=== PATIENT | male | born 1990 | race Two or more races ===

== ENCOUNTER 2019-08-04 23:39 | Emergency (ER) | payer OTHER ==
[~2019-08-04] VITALS: Ht 185.4 cm; Wt 105.9 kg
[2019-08-05] MEDS ORDERED: FAMOTIDINE 20 MG/2 ML VIAL IVP ONE (00:30)
[2019-08-05] MEDS ORDERED: IV NORMAL SALINE 1,000ML 1,000 ML IV SCH (00:30)
[2019-08-05] MEDS ORDERED: ONDANSETRON PF 4 MG/2 ML VIAL. IVP ONE (00:30)
[2019-08-05 00:41] LABS: BASO % 0 % (0-3); EOS % 0 % (0-3); HEMATOCRIT 43.4 % (39.0-53.0); HEMOGLOBIN 14.2 g/dL (13.0-17.5); LYMPH % 10 % (24-48); MEAN CORPUSCULAR HEMOGLOBIN 31 pg (25-35); MEAN CORPUSCULAR HGB CONC 33 g/dL (31-37); MEAN CORPUSCULAR VOLUME 94 fL (79-100); MONO # 0.5 x10^3/uL (0.0-1.1); MONO % 6 % (0-9); NEUT # 7.7 x10^3uL (1.8-7.7); NEUT % 84 % (31-73); PLATELET COUNT 227 x10^3/uL (140-400); RED BLOOD COUNT 4.63 x10^6/uL (4.30-5.70); RED CELL DISTRIBUTION WIDTH 13.5 % (11.5-14.5); WHITE BLOOD COUNT 9.3 x10^3/uL (4.0-11.0)
[2019-08-05 00:50] LABS: CALCIUM 8.8 mg/dL (8.5-10.1); CREATININE 1.1 mg/dL (0.7-1.3); GFR 78.6
[2019-08-05 00:55] LABS: ALBUMIN/GLOBULIN RATIO 1.4 (1.0-1.7); TOTAL BILIRUBIN 0.4 mg/dL (0.2-1.0); TOTAL PROTEIN 6.8 g/dL (6.4-8.2)
--- NOTE | 2019-08-05 01:52 | RAD ---
Testicular ultrasound History: Right-sided pain/swelling that extends to right groin. Vasectomy 08/04/2019. Comparison: None. Technique: Multiple grayscale, color flow Doppler and Doppler spectral analysis images of the scrotum are obtained. Findings: Superior to the right testicle there is a complex heterogeneous mass that extends to the right groin measuring 10.1 x 6.8 x 3.4 cm. Color Doppler interrogation does not demonstrate internal vascularity. Right testicle measures 4.7 x 2.7 x 2.3 cm. Right testicle demonstrates normal parenchymal echogenicity. The right epididymis is unremarkable. Left testicle measures 4 x 2.5 x 2.4 cm. Left testicle demonstrates normal parenchymal echogenicity. The left epididymis is unremarkable. There is trace bilateral hydroceles. There is no varicocele. Scrotal hyperemia or swelling are not seen. Doppler imaging demonstrates normal flow to both testicles, without evidence of torsion. IMPRESSION: 1. There is a complex heterogeneous mass superior to the right testicle extending to the right groin. Common etiology would be an inguinal hernia. The mass may be bowel although typical bowel mucosa echotexture is not identified. Recommend further evaluation with CT pelvis with contrast. 2. No evidence of testicular mass or torsion. 3. Trace bilateral hydroceles. Electronically signed by: Govind Hidalgo MD (08/05/2019 1:49 AM) [id number]
[2019-08-05] MEDS ORDERED: CONTRAST GIVEN MC PRN (02:15)
[2019-08-05] MEDS ORDERED: IOHEXOL 300 MG/ML 75 ML VIAL. IV ONE (02:30)
[2019-08-05 03:13] LABS: BACTERIA,URINE 0 /HPF (0-FEW); BILIRUBIN,URINE NEG (NEG); CLARITY,URINE CLEAR; COLOR,URINE YELLOW; GLUCOSE,URINE NEG (NEG); NITRITE,URINE NEG (NEG); RBC,URINE 0 /HPF (0-2); SQUAMOUS EPITHELIAL CELL,UR OCC /LPF; UROBILINOGEN,URINE 0.2 mg/dL (0.2 mg/dL); WBC,URINE RARE /HPF (0-4)
--- NOTE | 2019-08-05 03:29 | RAD ---
PQRS Compliance Statement: One or more of the following individualized dose reduction techniques were utilized for this examination: 1. Automated exposure control 2. Adjustment of the mA and/or kV according to patient size 3. Use of iterative reconstruction technique CT PELVIS W/CONTRAST Clinical Indication: Right inguinal mass, testicular pain and swelling post mastectomy. Comparison: Testicular ultrasound, earlier same day. TECHNIQUE: Helical CT imaging of the pelvis is performed after 74 cc of Omnipaque 300 IV contrast. Findings: Contrast phase is delayed which limits evaluation. The appendix is normal. Visualized bowel unremarkable. Urinary bladder is not well distended. Prostate and seminal vesicles are normal. No pelvic free fluid. In the right scrotum surrounding vasectomy clip there is hyperdense hematoma measuring approximately 7.7 cm AP by 6.1 cm transverse by 12.1 cm craniocaudal. There is induration that extends more cephalad an additional 9 cm, for example coronal image 18. The right testicle is inferior to the hematoma. There are a couple of tiny foci of air in the hematoma. Left vasectomy clip is also noted. No acute bone abnormality. Transitional lumbar sacral anatomy. IMPRESSION: There is a large hyperdense hematoma in the right scrotum surrounding the vasectomy clip. Electronically signed by: Govind Hidalgo MD (08/05/2019 3:26 AM) [id number]
--- NOTE | 2019-08-05 03:38 | EKG ---
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
[2019-08-05 03:49] VITALS: BP 117/64
--- NOTE | 2019-08-05 03:55 | PHYS DOC ---
Past History Past Medical History: No Pertinent History Past Surgical History: Other Additional Past Surgical Histo: vasectomy Alcohol Use: None Adult General Chief Complaint Chief Complaint: POST-OP PROBLEM HPI HPI Patient is a 28 year old male who presents with complaint of groin swelling and pain. Patient states that he underwent a vasectomy earlier in the day at the office of Dr. Wolf Brooks, urologist, here at [facility]. Patient does note that during the procedure he experienced significant pain to the right testicle. Per routine, patient went home after the procedure. He initially did not note any significant swelling or bleeding. Patient however started to experience significant lightheadedness, dizziness, and per almost "passed out." He stated that this happened when he had gotten up to use the restroom e arlier this evening. He also noted significant pressure to the groin area. When patient examined the area where his procedure had been done, he states that he has noticed severe swelling and bruising to the affected area. Notes that when he sits up he gets very lightheaded. Patient also noted that he was experiencing ringing in his ears which has since stopped. Denies any previous history of cardiac abnormality or other significant past medical history. Patient and contacted the on-call nurse for Dr. Brooks and he was instructed to come to the emergency department for further evaluation. Review of Systems Review of Systems Constitutional: Denies fever or chills [] Eyes: Denies change in visual acuity, redness, or eye pain [] HENT: Tinnitus, denies nasal congestion or sore throat[] Respiratory: Denies cough or shortness of breath [] Cardiovascular: Near-syncope, denies chest pain or edema[] GI: Nausea, denies vomiting, bloody stools or diarrhea [] : Swelling and bruising to scrotum and groin[] Musculoskeletal: Denies back pain or joint pain [] Integument: Denies rash or skin lesions [] Neurologic: Lightheadedness, denies focal weakness or sensory changes [] All other systems were reviewed and found to be within normal limits, except as documented in this note. Current Medications Current Medications Current Medications Medications (Trade) Dose Ordered Sig/Bill Start Time Stop Time Status Last Admin Dose Admin Famotidine (Pepcid Vial) 20 mg 1X ONCE 08/05/19 00:30 08/05/19 00:31 DC 2/13/20 00:35 20 MG Fentanyl Citrate (Fentanyl 2ml Vial) 50 mcg PRN Q15MIN PRN 08/05/19 00:15 08/06/19 00:14 08/05/19 03:26 50 MCG Info (Do NOT chart on this entry -- for MONITORING) 1 each PRN DAILY PRN 08/05/19 02:15 08/07/19 02:14 Iohexol (Omnipaque 300 Mg/ml) 75 ml 1X ONCE 08/05/19 02:30 08/05/19 02:31 DC 08/05/19 02:27 75 ML Ondansetron HCl (Zofran) 4 mg 1X ONCE 08/05/19 00:30 08/05/19 00:31 DC 08/05/19 00:35 4 MG Sodium Chloride 1,000 ml @ 1,000 mls/hr Q1H 08/05/19 00:30 08/05/19 01:29 DC 08/05/19 00:36 1,000 MLS/HR Allergies Allergies Allergies Coded Allergies Type Severity Reaction Last Updated Verified No Known Drug Allergies 08/05/19 No Physical Exam Physical Exam Constitutional: Alert, afebrile, appears in [id number] discomfort. [] HENT: Normocephalic, atraumatic, bilateral external ears normal, oropharynx moist, no oral exudates, nose normal. [] Eyes: PERRLA, EOMI, conjunctiva normal, no discharge. [] Neck: Normal range of motion, no tenderness, supple, no stridor. [] Cardiovascular:Heart rate regular rhythm, no murmur [] Lungs & Thorax: Bilateral breath sounds clear to auscultation [] Abdomen: Bowel sounds normal, soft, no tenderness, no masses, no pulsatile masses. : Penis uncircumcised, moderate to severe swelling of the right hemiscrotum with overlying ecchymosis, moderate to severe tenderness to palpation, noted moderate soft tissue swelling extending through right inguinal canal, normal left cremasteric reflex, limited right cremasteric reflex exam due to significant soft tissue swelling.[] Skin: Warm, dry, no erythema, no rash. [] Back: No tenderness, no CVA tenderness. [] Extremities: No tenderness, no cyanosis, no clubbing, ROM intact, no edema. [] Neurologic: Alert and oriented X 3, normal motor function, normal sensory function, no focal deficits noted. [] Current Patient Data Vital Signs Vital Signs Date Time Temp Pulse Resp B/P (MAP) Pulse Ox O2 Delivery O2 Flow Rate FiO2 08/05/19 03:26 16 99 Room Air 08/05/19 01:49 77 117/65 (82) 08/04/19 23:42 97.7 Lab Results Laboratory Tests Test 08/05/19 00:25 08/05/19 02:40 White Blood Count 9.3 x10^3/uL (4.0-11.0) Red Blood Count 4.63 x10^6/uL (4.30-5.70) Hemoglobin 14.2 g/dL (13.0-17.5) Hematocrit 43.4 % (39.0-53.0) Mean Corpuscular Volume 94 fL (79-100) Mean Corpuscular Hemoglobin 31 pg (25-35) Mean Corpuscular Hemoglobin Concent 33 g/dL (31-37) Red Cell Distribution Width 13.5 % (11.5-14.5) Platelet Count 227 x10^3/uL (140-400) Neutrophils (%) (Auto) 84 % (31-73) H Lymphocytes (%) (Auto) 10 % (24-48) L Monocytes (%) (Auto) 6 % (0-9) Eosinophils (%) (Auto) 0 % (0-3) Basophils (%) (Auto) 0 % (0-3) Neutrophils # (Auto) 7.7 x10^3uL (1.8-7.7) Lymphocytes # (Auto) 1.0 x10^3/uL (1.0-4.8) Monocytes # (Auto) 0.5 x10^3/uL (0.0-1.1) Eosinophils # (Auto) 0.0 x10^3/uL (0.0-0.7) Basophils # (Auto) 0.0 x10^3/uL (0.0-0.2) Sodium Level 142 mmol/L (136-145) Potassium Level 4.0 mmol/L (3.5-5.1) Chloride Level 104 mmol/L (98-107) Carbon Dioxide Level 30 mmol/L (21-32) Anion Gap 8 (6-14) Blood Urea Nitrogen 19 mg/dL (8-26) Creatinine 1.1 mg/dL (0.7-1.3) Estimated GFR (Cockcroft-Gault) 78.6 BUN/Creatinine Ratio 17 (6-20) Glucose Level 116 mg/dL (70-99) H Calcium Level 8.8 mg/dL (8.5-10.1) Total Bilirubin 0.4 mg/dL (0.2-1.0) Aspartate Amino Transferase (AST) 16 U/L (15-37) Alanine Aminotransferase (ALT) 28 U/L (16-63) Alkaline Phosphatase 55 U/L (46-116) Total Protein 6.8 g/dL (6.4-8.2) Albumin 4.0 g/dL (3.4-5.0) Albumin/Globulin Ratio 1.4 (1.0-1.7) Urine Collection Type Unknown Urine Color Yellow Urine Clarity Clear Urine pH 6.0 Urine Specific [place] 1.020 Urine Protein Neg (NEG-TRACE) Urine Glucose (UA) Neg mg/dL (NEG) Urine Ketones (Stick) Neg mg/dL (NEG) Urine Blood Neg (NEG) Urine Nitrite Neg (NEG) Urine Bilirubin Neg (NEG) Urine Urobilinogen Dipstick 0.2 mg/dL (0.2 mg/dL) Urine Leukocyte Esterase Neg (NEG) Urine RBC 0 /HPF (0-2) Urine WBC Rare /HPF (0-4) Urine Squamous Epithelial Cells Occ /LPF Urine Bacteria 0 /HPF (0-FEW) EKG EKG Interpreted by me: Heart rate 64, sinus rhythm, normal intervals, normal axis, no acute ST/T-wave abnormalities present[] Radiology/Procedures Radiology/[place] [address] IMAGING REPORT Signed PATIENT: ERIK OLIVASACCOUNT: [id number] : 1990 LOCATION: ER AGE: 28 SEX: M EXAM STATUS: REG ER ORD. PHYSICIAN: KAVITHA MARTINES MD REASON: right scrotal bruising and swelling, s/p vasectomy today PROCEDURE: TESTICULAR/SCROTUM Testicular ultrasound History: Right-sided pain/swelling that extends to right groin. Vasectomy 08/04/2019. Comparison: None. Technique: Multiple grayscale, color flow Doppler and Doppler spectral analysis images of the scrotum are obtained. Findings: Superior to the right testicle there is a complex heterogeneous mass that extends to the right groin measuring 10.1 x 6.8 x 3.4 cm. Color Doppler interrogation does not demonstrate internal vascularity. Right testicle measures 4.7 x 2.7 x 2.3 cm. Right testicle demonstrates normal parenchymal echogenicity. The right epididymis is unremarkable. Left testicle measures 4 x 2.5 x 2.4 cm. Left testicle demonstrates normal parenchymal echogenicity. The left epididymis is unremarkable. There is trace bilateral hydroceles. There is no varicocele. Scrotal hyperemia or swelling are not seen. Doppler imaging demonstrates normal flow to both testicles, without evidence of torsion. IMPRESSION: 1. There is a complex heterogeneous mass superior to the right testicle extending to the right groin. Common etiology would be an inguinal hernia. The mass may be bowel although typical bowel mucosa echotexture is not identified. Recommend further evaluation with CT pelvis with contrast. 2. No evidence of testicular mass or torsion. 3. Trace bilateral hydroceles. Electronically signed by: Govind Hidalgo MD (08/05/2019 1:49 AM) [id number] DICTATED AND SIGNED BY: GOVIND HIDALGO MD DATE: 08/05/19 0149 CC: KAVITHA MARTINES MD; KARISHMA ROSSI DO ~ [place] [id number] IMAGING REPORT Signed PATIENT: ERIK OLIVASACCOUNT: [id number] : 1990 LOCATION: ER AGE: 28 SEX: M EXAM STATUS: REG ER ORD. PHYSICIAN: KAVITHA MARTINES MD REASON: right inguinal mass, testicular pain and swelling s/p vasectomy, PROCEDURE: CT PELVIS W/CONTRAST PQRS Compliance Statement: One or more of the following individualized dose reduction techniques were utilized for this examination: 1. Automated exposure control 2. Adjustment of the mA and/or kV according to patient size 3. Use of iterative reconstruction technique CT PELVIS W/CONTRAST Clinical Indication: Right inguinal mass, testicular pain and swelling post mastectomy. Comparison: Testicular ultrasound, earlier same day. TECHNIQUE: Helical CT imaging of the pelvis is performed after 74 cc of Omnipaque 300 IV contrast. Findings: Contrast phase is delayed which limits evaluation. The appendix is normal. Visualized bowel unremarkable. Urinary bladder is not well distended. Prostate and seminal vesicles are normal. No pelvic free fluid. In the right scrotum surrounding vasectomy clip there is hyperdense hematoma measuring approximately 7.7 cm AP by 6.1 cm transverse by 12.1 cm craniocaudal. There is induration that extends more cephalad an additional 9 cm, for example coronal image 18. The right testicle is inferior to the hematoma. There are a couple of tiny foci of air in the hematoma. Left vasectomy clip is also noted. No acute bone abnormality. Transitional lumbar sacral anatomy. IMPRESSION: There is a large hyperdense hematoma in the right scrotum surrounding the vasectomy clip. Electronically signed by: Govind Hidalgo MD (08/05/2019 3:26 AM) [id number] DICTATED AND SIGNED BY: GOVIND HIDALGO MD DATE: 08/05/19 0326 CC: KAVITHA MARTINES MD; KARISHMA ROSSI DO ~ [] Course & Med Decision Making Course & Med Decision Making Pertinent Labs and Imaging studies reviewed. (See chart for details) Patient started on IV fluids, fentanyl, Zofran, and Pepcid in the emergency department. Ultrasound imaging was ordered. Blood flow confirmed to the right testicle. Large heterogenous mass was noted on ultrasound imaging confirmed to be a large right scrotal hematoma after CT imaging was performed. The patient's examination and findings are consistent with postoperative scrotal hematoma likely contributing to vasovagal symptoms given patient's lightheadedness, transient tinnitus, and reported "near passing out." I contacted the patient's urologist, Dr. Wolf Brooks, and spoke with him regarding the patient's evaluation. He stated that he would be in his clinic in [place], [place] this morning and he requested that the patient remain NPO and go to his office this morning when it opens in order to drain the hematoma and improve the patient's symptoms. He stated the patient could continue in the meantime with ice packs and pain medication as prescribed from his procedure yesterday. Spoke with patient regarding recommendations and need for follow-up this morning. Advised return t o the emergency department for any worsening symptoms. Patient voiced understanding of recommended treatment plan.[] Dragon Disclaimer Dragon Disclaimer This electronic medical record was generated, in whole or in part, using a voice recognition dictation system. Departure Departure: Impression: Primary Impression: Scrotal hematoma Additional Impression: Vasovagal near syncope Disposition: HOME, SELF-CARE Condition: IMPROVED Referrals: KARISHMA ROSSI DO (PCP) WOLF BROOKS MD Patient Instructions: Scrotal Hematoma Additional Instructions: Follow-up with Dr. Brooks today in his office in [facility] where he will plan to drain your hematoma. He has instructed that you did not eat anything or drink anything until you have seen him this morning. Do not delay seeing him as recommended as this could result in a potential worsening complications including decreased blood flow to your right testicle. You may take the pain medication as prescribed from your procedure yesterday. Continue to use ice packs applied for 20 minutes at a time to the groin at least twice this morning until you have seen Dr. Brooks. Return to the emergency department for any worsening symptoms. Problem Qualifiers KAVITHA MARTINES MD Aug 05, 2019 03:55
== END 2019-08-05 04:06 | disposition home or self-care (01) ==
LOC: ER 23:39
DX: S30.22XA Contusion of scrotum and testes, initial encounter (principal); R55 Syncope and collapse; X58.XXXA Exposure to other specified factors, initial encounter; Y93.89 Activity, other specified; Y92.89 Other specified places as the place of occurrence of the external cause; Y99.8 Other external cause status
CPT/HCPCS: 36415; 72193; 76870; 80053; 81001; 85025; 93005; 96361; 96374; 96375; 96376; 99285; J2405; J3010; J3490; Q9967; J7030